=== PATIENT | female | born 1980 | race Caucasian/White ===

== ENCOUNTER → 2024-01-27 13:19 | Outpatient (REF) | payer BC, SELFPAY ==
[2024-01-27 13:40] VITALS: BP 117/55; BP_SYST 77
== END ==
LOC: RADI 13:19
PROVIDERS: ATTENDING PHYSICIAN Internal Medicine Endocrinology, Diabetes & Metabolism; FAMILY PHYSICIAN Nurse Practitioner Family
DX: E04.2 Nontoxic multinodular goiter (principal)
CPT/HCPCS: 88173; 10005; 10006

== ENCOUNTER 2024-07-26 06:14 | Day surgery (SDC) | payer BC, SELFPAY ==
[2024-07-11 11:44] LABS: INR 1.05
[2024-07-11 11:45] LABS: APTT 33.2 Sec (23.4-35.0)
[2024-07-11 12:01] LABS: ALT (SGPT) 14 U/L (0-35); AST (SGOT) 19 U/L (14-36); Albumin 4.3 g/dl (3.5-5.0); Alkaline Phosphatase 57 U/L (38-126); Blood Urea Nitrogen 19 mg/dl (7-17); Calcium 9.5 mg/dl (8.4-10.2); Carbon Dioxide 26 mmol/L (22-30); Chloride 108 mmol/L (98-107); Glucose 85 mg/dl (70-99); Potassium 4.6 mmol/L (3.5-5.1); Sodium 141 mmol/L (135-145); Total Bilirubin 0.7 mg/dl (0.2-1.3); Total Protein 6.9 g/dl (6.3-8.2); eGFR > 60.00
[2024-07-11 12:21] LABS: Hematocrit 36.7 % (37.0-47.0); Mean Corp Hgb Conc. 32.7 g/dL (33.0-37.0); Mean Corpuscular Hgb 30.1 pg (27.0-31.0); Mean Platelet Volume 11.4 fL (7.4-10.4); Platelet Count 189 10^3/uL (130-400); Red Blood Cell Count 3.99 10^6/uL (4.20-5.40); Red Cell Dist. Width 13.2 % (11.5-14.5); White Blood Cell Count 4.2 10^3/uL (4.8-10.8)
[2024-07-11 13:46] VITALS: BMI 22.5
--- NOTE | 2024-07-12 08:37 | PTCARENOTE ---
Abn ECG, Dr. Cummins made aware, patient is ok to proceed with surgery if stable.
[2024-07-26] VITALS (9 sets, daily range): BP systolic 96–130; BP diastolic 60–77; BMI 22.5
[2024-07-26] MEDS: TYLENOL 1000 MG PO (09:29)
[2024-07-26] MEDS: TRANSDERM-SCOP 1 PATCH TRANSDERM (09:29)
[2024-07-26] MEDS: HEPARIN 5000 UNITS SC (09:30)
[2024-07-26] MEDS: NEURONTIN 600 MG PO (09:30)
[2024-07-26] MEDS: EMEND 40 MG PO (09:34)
[2024-07-26] MEDS: NORMOSOL-R/PLASMALYTE-A 1000 IV (09:41)
--- NOTE | 2024-07-26 11:51 | OR.RPT ---
Operative Report
Operative Report
DATE OF OPERATION: July 26, 2024
PREOPERATIVE DIAGNOSIS: Thyroid Nodule Single - E041
POSTOPERATIVE DIAGNOSIS: Same
SURGEON: Yash Dean M.D.
OPERATION: Completion Total Thyroidectomy Limited Neck Dissection � 49244
Autotransplant of the left superior parathyroid gland - [id number]
ANESTHESIA: GET
ESTIMATED BLOOD LOSS: 3 cc
DRAINS: None
SPECIMEN: Left thyroid lobe and left level paratracheal tissue
FINDINGS: Multiple nodules and lymphadenopathy
COMPLICATIONS: None
PROCEDURE:
The patient was taken to the operating room and placed in the usual supine position. After adequate general endotracheal anesthesia was established, the patient�s neck was extended, prepped, and draped in the typical sterile fashion. A 4 cm portion
of the old transcervical incision was reopened with the #15 blade, which was taken through the skin into the subcutaneous tissue. The underlying platysma muscle was divided, and subplatysmal flaps were created superiorly to the thyroid cartilage and
inferiorly to the sternal notch. Strap muscles were identified and at the midline.
Attention was turned to the patient�s left thyroid lobe, which was mobilized medially. During this process, the left middle thyroid vein and inferior thyroid artery were dissected and ligated with Ligasure. Next, the left superior pole was taken
down by dissecting and transecting the superior pole vessels with Ligasure. The left thyroid lobe was mobilized medially.
During this process, the left recurrent laryngeal nerve was identified and preserved throughout its entire course. The left inferior parathyroid gland was identified and preserved. The left superior gland was noted to be on the specimen, which was
dissected, minced, and autotransplanted in the left SCM muscle. The left thyroid lobe with isthmus was resected off the trachea and sent to the pathology department.
At this time, the left level 6 neck dissection was performed. The tissue between the left carotid artery to the trachea in the anterior mediastinum was carefully dissected. The previously identified recurrent laryngeal nerve and parathyroid glands
were preserved. The tissue was removed and sent to the pathology department.
After obtaining adequate hemostasis, the strap muscle was approximated with #3-0 Vicryl in a running fashion, and the platysma muscles were reapproximated with #3-0 Vicryl in an interrupted fashion, and the skin was approximated with #4-0 Monocryl
in a running subcuticular fashion. Steri-strips and sterile dressings were placed. The patient tolerated the procedure well. The final instrument, needle, and sponge counts were correct.
[2024-07-26] MEDS: ZOFRAN 4 MG IV (12:22)
[2024-07-26] MEDS: COMPAZINE 5 MG IV (12:36)
== END 2024-07-26 13:45 | disposition home or self-care (01) ==
LOC: SDS 06:14
PROVIDERS: ATTENDING PHYSICIAN Surgery; FAMILY PHYSICIAN Nurse Practitioner Family
DX: D34 Benign neoplasm of thyroid gland (principal); E06.3 Autoimmune thyroiditis; E04.2 Nontoxic multinodular goiter; R59.0 Localized enlarged lymph nodes
CPT/HCPCS: 60252; 88307; 36415; 80053; 85027; 85610; 85730; 93005; C1776